=== PATIENT | female | born 1950 | race Caucasian/White ===

== ENCOUNTER → 2019-08-19 | Outpatient (REF) | payer MEDICARE ==
[2019-08-20 13:47] LABS: AMORPHOUS SEDIMENT SMALL (NEGATIVE); APPEARANCE, URINE HAZY (CLEAR); BACTERIA, URINE AUTO NEGATIVE (NEGATIVE); BILIRUBIN, URINE AUTO NEGATIVE (NEGATIVE); BLOOD, URINE BLOOD NEGATIVE (NEGATIVE); COLOR, URINE YELLOW (YELLOW); GLUCOSE, URINE (UA) AUTO NEGATIVE (NEGATIVE); KETONE, URINE AUTO NEGATIVE (NEGATIVE); LEUKOCYTE ESTERASE, URINE AUTO NEGATIVE (NEGATIVE); MUCUS, URINE SMALL (NEGATIVE); NITRITE, URINE AUTO NEGATIVE (NEGATIVE); PROTEIN, URINE AUTO NEGATIVE (NEGATIVE); RBC, URINE AUTO 1 /HPF (0-3); SPECIFIC GRAVITY URINE AUTO 1.019 (1.002-1.035); SQUAMOUS EPITHELIAL CELL UR AU 0 /HPF (0-6); UROBILINOGEN, URINE AUTO 0.2 mg/dL (0.0-2.0); WBC, URINE AUTO 5 /HPF (0-3)
== END ==
LOC: M SFHCCLAY 16:22
PROVIDERS: ATTEND Physician Assistant
DX: N39.0 Urinary tract infection, site not specified (principal)

== ENCOUNTER → 2021-09-22 | Outpatient (CLI) | payer MEDICARE | LOC: M CLY 10:56 | PROVIDERS: ATTEND Physician Assistant | DX: M51.36 Other intervertebral disc degeneration, lumbar region (principal); M51.37 Other intervertebral disc degeneration, lumbosacral region; M46.96 Unspecified inflammatory spondylopathy, lumbar region; M46.97 Unspecified inflammatory spondylopathy, lumbosacral region; M54.50 Low back pain, unspecified ==

== ENCOUNTER 2021-09-24 16:06 | Emergency (ER) | payer MEDICARE ==
[~2021-09-24] VITALS: Ht 165.1 cm; Wt 75.8 kg
[2021-09-24] MEDS ORDERED: KETOROLAC 60MG 2ML VIAL IM ONE (20:40)
[2021-09-24] MEDS ORDERED: NEUR300C PO (20:42)
[2021-09-24] MEDS ORDERED: METH-1165 PO (20:42)
[2021-09-24] MEDS ORDERED: LIDO5DIS41 TD (20:42)
[2021-09-24 21:15] VITALS: BP 170/90
== END 2021-09-24 21:20 | disposition home or self-care (01) ==
LOC: M ED 16:06
DX: M54.32 Sciatica, left side (principal); M51.36 Other intervertebral disc degeneration, lumbar region; E11.9 Type 2 diabetes mellitus without complications; E78.5 Hyperlipidemia, unspecified; Z85.3 Personal history of malignant neoplasm of breast
CPT/HCPCS: 73502; 96372; 99283; J1885

== ENCOUNTER → 2024-10-15 | Outpatient (CLI) | payer MEDICARE ==
[~2024-10-15] MED LIST: LIDO1ADH93 TD; METH-1165 PO; NEUR300C PO
== END ==
LOC: M CLY 13:28
PROVIDERS: ATTEND Nurse Practitioner Family
DX: M19.071 Primary osteoarthritis, right ankle and foot (principal)

== ENCOUNTER → 2024-10-15 | Outpatient (REF) | payer MEDICARE ==
[2024-10-15 18:38] LABS: ALT/SGPT 14.0 U/L (7.0-40); AST/SGOT 16.0 U/L (<34); CALCIUM LEVEL 9.9 MG/DL (8.3-10.6); CARBON DIOXIDE LEVEL 28.0 MMOL/L (20-31); CHLORIDE LEVEL 105.0 MMOL/L (98-107); CREATININE FOR GFR 1.1 MG/DL (0.55-1.30); GLOMERULAR FILTRATION RATE 53.4 (>39); POTASSIUM SERUM 5.4 MMOL/L (3.5-5.1); SODIUM LEVEL 143.0 MMOL/L (136-145)
== END ==
LOC: M SFHCCLAY 13:15
PROVIDERS: ATTEND Nurse Practitioner Family
DX: M10.9 Gout, unspecified (principal)